=== PATIENT | female | born 1945 | race Caucasian/White ===

== ENCOUNTER 2017-07-11 01:01 | Inpatient (IN) | payer OTHER, MEDICARE ==
[~2017-07-11] VITALS: Ht 152.4 cm; Wt 89.8 kg
[~2017-07-11 01:01] MED LIST: CARCD180 PO; LIPI20 PO; MILLIPRED5 M1 PO; PEPCID20 MG PO; PREDNISONE50 MG PO; PRI20 PO; XARELTO STARTER20 MG PO
[2017-07-11 02:33] LABS: CALCIUM 8.4 mg/dL (8.5-10.1); CARBON DIOXIDE 23.1 mmol/L (21-32); CREATININE SERUM 1.1 mg/dL (0.6-1.0); POTASSIUM SERUM 3.5 mmol/L (3.5-5.1)
[2017-07-11 02:36] LABS: PLATELET COUNT 374 x10^3mcL (130-400); RED CELL DISTRIBUTION WIDTH 13.8 % (11.5-14.5)
[2017-07-11 02:43] LABS: BILIRUBIN TOTAL 0.59 mg/dL (0.20-1.00)
[2017-07-11 02:44] LABS: ALBUMIN 3.3 g/dL (3.4-5.0)
[2017-07-11 02:55] LABS: BAND NEUTROPHIL 2 % (0-10); BASOPHIL 0 % (0-2); MONOCYTE 2 % (0-7); SEGMENTED NEUTROPHILS 89 % (37-75)
[2017-07-11 02:56] LABS: PLATELET MORPHOLOGY PLATELETS NORMAL; rbc morphology (normal/abnorm) NORMAL (NORMAL)
[2017-07-11 06:28] LABS: microscopic required? YES; urine erythrocyte 1+ (NEGATIVE)
[2017-07-11 07:06] LABS: CHOLESTEROL/HDL RATIO 3.4; MAGNESIUM 1.9 mg/dL (1.8-2.4); PHOSPHOROUS 2.9 mg/dL (2.5-4.9)
[2017-07-11 07:14] LABS: T3 TOTAL 1.24 ng/mL
[2017-07-11 07:15] LABS: FREE T4 0.83 ng/dL (0.76-1.46); FREE THYROXINE INDEX 1.8 ug/dL (1.4-4.5)
[2017-07-11 07:43] VITALS: BP 120/77
[2017-07-11 14:03] VITALS: BP 123/59; BP 136/82
[2017-07-11 18:36] VITALS: BP 127/60
[2017-07-11 21:44] VITALS: BP 100/53
[2017-07-12 06:07] VITALS: BP 107/56
[2017-07-12 06:27] LABS: CALCIUM 7.3 mg/dL (8.5-10.1); CARBON DIOXIDE 21.5 mmol/L (21-32); CHLORIDE SERUM 110 mmol/L (98-107); CREATININE SERUM 0.8 mg/dL (0.6-1.0); GFR1 > 60 mL/min; GLUCOSE SERUM 81 mg/dL (74-106); POTASSIUM SERUM 3.2 mmol/L (3.5-5.1); SODIUM SERUM 142 mmol/L (136-145)
[2017-07-12 06:28] LABS: BASOPHIL % 0.4 % (0-2); PLATELET COUNT 257 x10^3mcL (130-400)
[2017-07-12 06:34] LABS: RED CELL DISTRIBUTION WIDTH 14.9 % (11.5-14.5)
[2017-07-12 08:48] VITALS: BP 101/52
[2017-07-12] MEDS ORDERED: LEVOFLOXACIN500 M1 PO (09:34)
[2017-07-12] MEDS ORDERED: FLA500 PO (09:35)
[2017-07-12] MEDS ORDERED: LAC PO (09:35)
[2017-07-12] MEDS ORDERED: ZOF4 PO (09:36)
[2017-07-12 11:57] VITALS: BP 114/55
[2017-07-12 13:20] VITALS: BP 114/55
[2017-07-12 16:16] VITALS: BP 121/64
== END 2017-07-12 19:57 | disposition home or self-care (01) | DRG 720 ==
LOC: ED 01:01 → DU 05:02 → MU 05:02 → DU 06:21 → MU 07-12 10:13
PROVIDERS: Emergency Medicine; Family Medicine
DX: A41.9 Sepsis, unspecified organism (principal); N17.0 Acute kidney failure with tubular necrosis; E44.0 Moderate protein-calorie malnutrition; M31.5 Giant cell arteritis with polymyalgia rheumatica; I48.91 Unspecified atrial fibrillation; E87.8 Other disorders of electrolyte and fluid balance, not elsewhere classified; E66.01 Morbid (severe) obesity due to excess calories; A08.4 Viral intestinal infection, unspecified; E78.5 Hyperlipidemia, unspecified; E86.0 Dehydration; R65.20 Severe sepsis without septic shock; K21.9 Gastro-esophageal reflux disease without esophagitis; E87.6 Hypokalemia; E02 Subclinical iodine-deficiency hypothyroidism; R31.9 Hematuria, unspecified; D64.9 Anemia, unspecified; Z88.8 Allergy status to other drugs, medicaments and biological substances; Z90.49 Acquired absence of other specified parts of digestive tract; Z79.899 Other long term (current) drug therapy; Z68.38 Body mass index [BMI] 38.0-38.9, adult
CPT/HCPCS: 83880; 84439; 87046; 87046-59; 87804; J0696; J2270; J2405; J2550; J3490; J7030; J7040; J7506; J7512; Q0169

== ENCOUNTER 2017-12-31 07:29 | Day surgery (SDC) | payer MEDICARE, OTHER ==
[~2017-12-31] VITALS: Ht 152.4 cm; Wt 90.7 kg
[~2017-12-31 07:29] MED LIST changes: +FLA500 PO; +LAC PO; +LEVOFLOXACIN500 M1 PO; +ZOF4 PO
[2017-12-31 08:13] VITALS: BP 142/78
[2017-12-31 15:44] VITALS: BP 120/69
== END 2017-12-31 11:25 | disposition home or self-care (01) ==
LOC: GI 07:29 → OR 08:30 → GI 11:25
PROVIDERS: Internal Medicine Gastroenterology
PROC: 0DBC8ZZ Excision of Ileocecal Valve, Via Natural or Artificial Opening Endoscopic (ICD-10-PCS; principal; 2017-12-31 12:15)
PROC: 0DBF8ZZ Excision of Right Large Intestine, Via Natural or Artificial Opening Endoscopic (ICD-10-PCS; 2017-12-31 12:15)
DX: Z12.11 Encounter for screening for malignant neoplasm of colon (principal); D12.2 Benign neoplasm of ascending colon; D17.79 Benign lipomatous neoplasm of other sites; Z86.010 Personal history of colon polyps; Z85.41 Personal history of malignant neoplasm of cervix uteri
CPT/HCPCS: 45378; J1200; J1610; J2250; J2310; J3010; J3490

== ENCOUNTER 2018-01-10 07:36 | Emergency (ER) | payer MEDICARE, OTHER ==
[~2018-01-10] VITALS: Ht 152.4 cm; Wt 92.1 kg
[2018-01-10 07:45] VITALS: Ht 152.4 cm; Wt 92.1 kg
[2018-01-10 08:50] VITALS: BP 130/64
== END 2018-01-10 08:50 | disposition home or self-care (01) ==
LOC: ED 07:36
DX: K62.5 Hemorrhage of anus and rectum (principal); K64.9 Unspecified hemorrhoids; R11.0 Nausea; J45.909 Unspecified asthma, uncomplicated; M79.7 Fibromyalgia; Z90.49 Acquired absence of other specified parts of digestive tract; Z90.89 Acquired absence of other organs; Z88.8 Allergy status to other drugs, medicaments and biological substances

== ENCOUNTER 2018-01-23 05:43 | Inpatient (IN) | payer OTHER, MEDICARE ==
[~2018-01-23] VITALS: Ht 152.4 cm; Wt 86.3 kg
[2018-01-23 05:49] VITALS: Ht 152.4 cm; Wt 86.3 kg
[2018-01-23 07:32] LABS: CALCIUM 8.4 mg/dL (8.5-10.1); CARBON DIOXIDE 25.3 mmol/L (21-32); CHLORIDE SERUM 103 mmol/L (98-107); CREATININE SERUM 0.9 mg/dL (0.6-1.0); GLUCOSE SERUM 107 mg/dL (74-106); POTASSIUM SERUM 3.9 mmol/L (3.5-5.1); SODIUM SERUM 136 mmol/L (136-145)
[2018-01-23 07:46] LABS: ALKALINE PHOSPHATASE 87 U/L (46-116); ALT/SGPT 31 U/L (14-59); AST/SGOT 24 U/L (15-37); BILIRUBIN TOTAL 0.73 mg/dL (0.20-1.00); TOTAL PROTEIN, SERUM 7.3 g/dL (6.4-8.2)
[2018-01-23 07:47] LABS: BASOPHIL % 0.1 % (0-2); PLATELET COUNT 384 x10^3mcL (130-400)
[2018-01-23 07:48] LABS: RED CELL DISTRIBUTION WIDTH 15.6 % (11.5-14.5)
[2018-01-23 07:50] LABS: ALBUMIN 3.1 g/dL (3.4-5.0)
[2018-01-23] MEDS ORDERED: GAS RELIEF20 MG/0.3 PO (09:43)
[2018-01-23] MEDS ORDERED: MELOXICAM7.5 M1 (09:43)
[2018-01-23] MEDS ORDERED: TRAMADOL HCL50 MG PO ×2 (09:44→11:40)
[2018-01-23] MEDS ORDERED: GABAPENTIN100 M2 (09:44)
[2018-01-23 11:20] VITALS: BP 98/58
[2018-01-23] MEDS ORDERED: GABAPENTIN300 M4 PO (11:41)
[2018-01-23] MEDS ORDERED: GABAPENTIN600 M1 PO (11:42)
[2018-01-23] MEDS ORDERED: MELOXICAM15 M1 PO (11:43)
[2018-01-23 13:30] VITALS: BP 131/59
[2018-01-23 13:47] LABS: CHOLESTEROL/HDL RATIO 3.9; MAGNESIUM 1.8 mg/dL (1.8-2.4); PHOSPHOROUS 2.9 mg/dL (2.5-4.9)
[2018-01-23 13:52] LABS: T3 TOTAL 1.1 ng/mL
[2018-01-23 14:14] VITALS: BP 106/60
[2018-01-23 14:18] LABS: FREE T4 0.96 ng/dL (0.76-1.46); FREE THYROXINE INDEX 1.9 ug/dL (1.4-4.5)
[2018-01-23 16:43] LABS: UA SPECIFIC GRAVITY <=1.005 (1.005-1.035); microscopic required? YES; urine erythrocyte TRACE (NEGATIVE)
[2018-01-23 16:52] LABS: AMPHETAMINE QUAL UR NONE DETECTED (See below)
[2018-01-23 17:39] VITALS: BP 104/57
[2018-01-23 20:27] VITALS: BP 126/63
[2018-01-24 04:56] VITALS: BP 106/55
[2018-01-24 06:55] LABS: BASOPHIL % 0.1 % (0-2); PLATELET COUNT 351 x10^3mcL (130-400); RED CELL DISTRIBUTION WIDTH 16.2 % (11.5-14.5)
[2018-01-24 07:05] LABS: CARBON DIOXIDE 24.7 mmol/L (21-32); CHLORIDE SERUM 107 mmol/L (98-107); CREATININE SERUM 0.9 mg/dL (0.6-1.0); GLUCOSE SERUM 91 mg/dL (74-106); MAGNESIUM 2.1 mg/dL (1.8-2.4); PHOSPHOROUS 3.5 mg/dL (2.5-4.9); POTASSIUM SERUM 4.1 mmol/L (3.5-5.1); SODIUM SERUM 139 mmol/L (136-145)
[2018-01-24 08:37] VITALS: BP 98/57
[2018-01-24 12:11] VITALS: BP 108/58
[2018-01-24] MEDS ORDERED: LASIX20 MG PO (12:37)
[2018-01-24 16:28] VITALS: BP 112/59
[2018-01-24 20:50] VITALS: BP 110/58
[2018-01-25 05:03] VITALS: BP 117/68
[2018-01-25 06:25] LABS: CALCIUM 8.5 mg/dL (8.5-10.1); CARBON DIOXIDE 27.8 mmol/L (21-32); CHLORIDE SERUM 107 mmol/L (98-107); CREATININE SERUM 0.9 mg/dL (0.6-1.0); GLUCOSE SERUM 103 mg/dL (74-106); PHOSPHOROUS 4.4 mg/dL (2.5-4.9); SODIUM SERUM 140 mmol/L (136-145)
[2018-01-25 06:40] LABS: BASOPHIL % 0.4 % (0-2); PLATELET COUNT 370 x10^3mcL (130-400)
[2018-01-25 06:45] LABS: RED CELL DISTRIBUTION WIDTH 15.9 % (11.5-14.5)
[2018-01-25 10:29] VITALS: BP 111/53
[2018-01-25 13:35] VITALS: BP 115/59
[2018-01-25 13:39] VITALS: BP 115/59
== END 2018-01-25 16:34 | disposition home or self-care (01) | DRG 203 ==
LOC: ED 05:43 → DU 09:35
PROVIDERS: Emergency Medicine; Internal Medicine
DX: M94.0 Chondrocostal junction syndrome [Tietze] (principal); E44.0 Moderate protein-calorie malnutrition; I48.2 Chronic atrial fibrillation; E83.51 Hypocalcemia; D72.829 Elevated white blood cell count, unspecified; F43.9 Reaction to severe stress, unspecified; G89.29 Other chronic pain; J45.909 Unspecified asthma, uncomplicated; M19.90 Unspecified osteoarthritis, unspecified site; M79.7 Fibromyalgia; Z68.39 Body mass index [BMI] 39.0-39.9, adult; Z79.01 Long term (current) use of anticoagulants; Z87.891 Personal history of nicotine dependence; Z88.8 Allergy status to other drugs, medicaments and biological substances; Z90.49 Acquired absence of other specified parts of digestive tract; Z98.891 History of uterine scar from previous surgery; Z82.49 Family history of ischemic heart disease and other diseases of the circulatory system
CPT/HCPCS: 83880; 84439; J1940; J2270; J2405; J7030

== ENCOUNTER 2019-03-17 10:25 | Inpatient (IN) | payer MEDICAID, MEDICARE ==
[~2019-03-17] VITALS: Ht 152.4 cm; Wt 88.5 kg
[~2019-03-17 10:25] MED LIST changes: +GABAPENTIN100 M2; +GABAPENTIN300 M4 PO; +GABAPENTIN600 M1 PO; +GAS RELIEF20 MG/0.3 PO; +LASIX20 MG PO; +MELOXICAM15 M1 PO; +MELOXICAM7.5 M1; +TRAMADOL HCL50 MG PO
[2019-03-17 10:41] VITALS: Ht 152.4 cm; Wt 88.5 kg
[2019-03-17 11:14] LABS: BASOPHIL % 0.5 % (0-2); PLATELET COUNT 311 x10^3mcL (130-400)
[2019-03-17 11:17] LABS: RED CELL DISTRIBUTION WIDTH 15.2 % (11.5-14.5)
[2019-03-17 12:03] LABS: CALCIUM 8.7 mg/dL (8.5-10.1); CARBON DIOXIDE 23.2 mmol/L (21-32); CHLORIDE SERUM 108 mmol/L (98-107); CREATININE SERUM 0.9 mg/dL (0.6-1.0); GLUCOSE SERUM 92 mg/dL (74-106); SODIUM SERUM 142 mmol/L (136-145)
[2019-03-17 12:08] LABS: ALKALINE PHOSPHATASE 135 U/L (46-116); ALT/SGPT 21 U/L (14-59); AST/SGOT 19 U/L (15-37); BILIRUBIN TOTAL 0.37 mg/dL (0.20-1.00); TOTAL PROTEIN, SERUM 7.4 g/dL (6.4-8.2)
[2019-03-17] MEDS ORDERED: CEL100 PO (12:29)
[2019-03-17] MEDS ORDERED: AUG500 PO (12:30)
[2019-03-17 13:46] LABS: CHOLESTEROL/HDL RATIO 4.6; MAGNESIUM 1.9 mg/dL (1.8-2.4)
[2019-03-17 14:36] VITALS: BP 140/64
[2019-03-17 17:46] VITALS: BP 142/70
[2019-03-17 17:58] VITALS: BP 112/67
[2019-03-17 21:10] VITALS: BP 113/56
[2019-03-18 04:43] LABS: UA SPECIFIC GRAVITY <=1.005 (1.005-1.035); microscopic required? YES; urine erythrocyte TRACE (NEGATIVE)
[2019-03-18 06:40] LABS: CALCIUM 8.6 mg/dL (8.5-10.1); CARBON DIOXIDE 22.6 mmol/L (21-32); CHLORIDE SERUM 108 mmol/L (98-107); CREATININE SERUM 0.9 mg/dL (0.6-1.0); GLUCOSE SERUM 159 mg/dL (74-106); SODIUM SERUM 140 mmol/L (136-145)
[2019-03-18 06:52] VITALS: BP 127/69
[2019-03-18 07:14] LABS: PLATELET COUNT 321 x10^3mcL (130-400)
[2019-03-18 07:29] LABS: BASOPHIL % 0 % (0-2); RED CELL DISTRIBUTION WIDTH 15.3 % (11.5-14.5)
[2019-03-18 07:57] VITALS: BP 141/72
[2019-03-18 12:30] VITALS: BP 131/67
[2019-03-18 16:33] VITALS: BP 124/69
[2019-03-18 21:04] VITALS: BP 131/60
[2019-03-19 05:36] VITALS: BP 121/70
[2019-03-19 06:34] LABS: CALCIUM 8.1 mg/dL (8.5-10.1); CARBON DIOXIDE 24.9 mmol/L (21-32); CHLORIDE SERUM 110 mmol/L (98-107); CREATININE SERUM 0.8 mg/dL (0.6-1.0); GLUCOSE SERUM 169 mg/dL (74-106); POTASSIUM SERUM 4.1 mmol/L (3.5-5.1); SODIUM SERUM 143 mmol/L (136-145)
[2019-03-19 07:13] LABS: BASOPHIL % 0.1 % (0-2); PLATELET COUNT 320 x10^3mcL (130-400)
[2019-03-19 07:24] LABS: RED CELL DISTRIBUTION WIDTH 15.8 % (11.5-14.5)
[2019-03-19 09:15] VITALS: BP 117/59
[2019-03-19 12:06] VITALS: BP 118/62
[2019-03-19 17:04] VITALS: BP 115/54
[2019-03-19 20:38] VITALS: BP 131/49
[2019-03-20 05:32] VITALS: BP 130/67
[2019-03-20 06:58] LABS: CALCIUM 7.8 mg/dL (8.5-10.1); CARBON DIOXIDE 24.8 mmol/L (21-32); CHLORIDE SERUM 109 mmol/L (98-107); CREATININE SERUM 0.9 mg/dL (0.6-1.0); GLUCOSE SERUM 165 mg/dL (74-106); POTASSIUM SERUM 3.7 mmol/L (3.5-5.1); SODIUM SERUM 143 mmol/L (136-145)
[2019-03-20 07:01] LABS: PLATELET COUNT 300 x10^3mcL (130-400)
[2019-03-20 07:47] LABS: BASOPHIL % 0 % (0-2); RED CELL DISTRIBUTION WIDTH 15.6 % (11.5-14.5)
[2019-03-20 08:08] VITALS: BP 116/64
[2019-03-20 13:00] VITALS: BP 109/43
[2019-03-20 16:44] VITALS: BP 120/60
[2019-03-20 20:48] VITALS: BP 136/67
[2019-03-21 06:39] VITALS: BP 126/73
[2019-03-21 06:41] LABS: BASOPHIL % 0.1 % (0-2); PLATELET COUNT 307 x10^3mcL (130-400); RED CELL DISTRIBUTION WIDTH 15.6 % (11.5-14.5)
[2019-03-21 06:46] LABS: CARBON DIOXIDE 24.1 mmol/L (21-32); CHLORIDE SERUM 109 mmol/L (98-107); CREATININE SERUM 0.8 mg/dL (0.6-1.0); GLUCOSE SERUM 173 mg/dL (74-106); POTASSIUM SERUM 3.7 mmol/L (3.5-5.1); SODIUM SERUM 144 mmol/L (136-145)
[2019-03-21 09:44] VITALS: BP 130/45
[2019-03-21 12:27] VITALS: BP 116/56
[2019-03-21 15:50] VITALS: BP 116/56
[2019-03-21 15:53] VITALS: BP 113/50
[2019-03-21 20:23] VITALS: BP 123/59
[2019-03-22 06:22] LABS: BASOPHIL % 0.1 % (0-2); PLATELET COUNT 296 x10^3mcL (130-400)
[2019-03-22 06:29] LABS: CALCIUM 7.9 mg/dL (8.5-10.1); CARBON DIOXIDE 24.7 mmol/L (21-32); CHLORIDE SERUM 109 mmol/L (98-107); CREATININE SERUM 0.9 mg/dL (0.6-1.0); GLUCOSE SERUM 198 mg/dL (74-106); POTASSIUM SERUM 3.9 mmol/L (3.5-5.1); SODIUM SERUM 143 mmol/L (136-145)
[2019-03-22 06:57] LABS: RED CELL DISTRIBUTION WIDTH 15.1 % (11.5-14.5)
[2019-03-22 08:45] VITALS: BP 127/61
[2019-03-22 13:30] VITALS: BP 118/53
[2019-03-22 17:00] VITALS: BP 117/52
[2019-03-22 20:49] VITALS: BP 135/59
[2019-03-23 04:42] VITALS: BP 119/56
[2019-03-23 08:44] VITALS: BP 122/61
[2019-03-23 16:35] VITALS: BP 126/63; BP 140/65
[2019-03-23 20:28] VITALS: BP 113/54
[2019-03-24 05:22] VITALS: BP 99/50
[2019-03-24 08:24] VITALS: BP 123/76
[2019-03-24 11:46] VITALS: BP 120/59
[2019-03-24 16:15] VITALS: BP 107/49
[2019-03-24 21:19] VITALS: BP 119/52
[2019-03-24 22:53] VITALS: BP 131/52
[2019-03-25 05:34] VITALS: BP 113/63
[2019-03-25 09:43] VITALS: BP 118/62
[2019-03-25 17:17] VITALS: BP 123/59
[2019-03-25 21:12] VITALS: BP 131/62
[2019-03-26 06:16] VITALS: BP 122/61
[2019-03-26 08:17] VITALS: BP 127/64
[2019-03-26 18:56] VITALS: BP 121/55
[2019-03-26 20:47] VITALS: BP 110/67
[2019-03-27 05:53] VITALS: BP 121/63
[2019-03-27 07:06] LABS: PLATELET COUNT 286 x10^3mcL (130-400)
[2019-03-27 07:14] LABS: CALCIUM 7.6 mg/dL (8.5-10.1); CARBON DIOXIDE 24.6 mmol/L (21-32); CHLORIDE SERUM 109 mmol/L (98-107); CREATININE SERUM 0.7 mg/dL (0.6-1.0); GLUCOSE SERUM 96 mg/dL (74-106); SODIUM SERUM 141 mmol/L (136-145)
[2019-03-27 07:21] LABS: BASOPHIL % 0 % (0-2); RED CELL DISTRIBUTION WIDTH 15.9 % (11.5-14.5)
[2019-03-27 09:34] VITALS: BP 112/58
[2019-03-27 16:53] VITALS: BP 114/55
[2019-03-27 21:38] VITALS: BP 106/55
[2019-03-28 05:38] VITALS: BP 115/62
[2019-03-28 09:25] VITALS: BP 116/61
[2019-03-28 16:39] VITALS: BP 106/49
[2019-03-28 20:13] VITALS: BP 110/61
[2019-03-29 06:28] LABS: PLATELET COUNT 244 x10^3mcL (130-400)
[2019-03-29 06:39] LABS: CALCIUM 7.8 mg/dL (8.5-10.1); CARBON DIOXIDE 25.9 mmol/L (21-32); CHLORIDE SERUM 109 mmol/L (98-107); CREATININE SERUM 0.8 mg/dL (0.6-1.0); GLUCOSE SERUM 111 mg/dL (74-106); POTASSIUM SERUM 3.9 mmol/L (3.5-5.1); SODIUM SERUM 144 mmol/L (136-145)
[2019-03-29 07:28] LABS: BASOPHIL % 0 % (0-2); RED CELL DISTRIBUTION WIDTH 16.2 % (11.5-14.5)
[2019-03-29 09:40] VITALS: BP 112/52
[2019-03-29] MEDS ORDERED: SYMBICORT1 AE2 INH (10:28)
[2019-03-29] MEDS ORDERED: IPRATROPIUM BROM3 M2 HHN (10:30)
[2019-03-29] MEDS ORDERED: PREDNISONE20 MG PO ×3 (10:32→10:34)
[2019-03-29] MEDS ORDERED: LEVOFLOXACIN500 M1 PO (10:35)
[2019-03-29 12:16] VITALS: BP 112/52
[2019-03-31] MEDS ORDERED: COMINH INH (11:39)
[2019-03-31] MEDS ORDERED: IPRATROPIUM BROM3 M2 IH (11:43)
== END 2019-03-29 16:05 | disposition home or self-care (01) | DRG 133 ==
LOC: ED 10:25 → DU 12:25 → MU 03-22 10:06
PROVIDERS: Emergency Medicine; General Practice; Internal Medicine; ADMIT Family Medicine
DX: J96.01 Acute respiratory failure with hypoxia (principal); E44.0 Moderate protein-calorie malnutrition; I48.0 Paroxysmal atrial fibrillation; G62.9 Polyneuropathy, unspecified; M31.6 Other giant cell arteritis; J45.901 Unspecified asthma with (acute) exacerbation; E78.5 Hyperlipidemia, unspecified; J20.9 Acute bronchitis, unspecified; M79.7 Fibromyalgia; M19.90 Unspecified osteoarthritis, unspecified site; Z68.38 Body mass index [BMI] 38.0-38.9, adult; Z87.891 Personal history of nicotine dependence; Z79.01 Long term (current) use of anticoagulants
CPT/HCPCS: 36600; 83880; 90658; 90732; 94150; G0378; J0132; J1956; J2920; J2930; J7030; J7512; J7626; J7644; Q0092